=== PATIENT | male | born 1995 | race Caucasian/White ===

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

== ENCOUNTER 2018-03-23 22:10 | Emergency (ER) | payer BC ==
[2018-03-23] MEDS ORDERED: NS 2,000 ML IV ONE (22:14)
--- NOTE | 2018-03-23 22:17 | EDPHY ---
H & P Time Seen by Provider: 03/23/18 22:15 HPI/ROS: HPI CHIEF COMPLAINT: Syncope, edible. marijuana, alcohol HISTORY OF PRESENT ILLNESS: 22-year-old male, presents to the emergency room by EMS after he had 2 syncopal episodes. The patient ingested 50 mg of marijuana edible, additionally 4 shots of alcohol, additionally caffeine pill, presents emergency room after he had a syncopal episode. He states he felt excessively sleepy during the movie that was watching. He thinks he may have passed out or fell asleep during the movie. He then got up felt ringing in his ears and then had another syncopal episode as he stood up. Denies chest pain or shortness of breath. This all happened after he had 4 shots of liquor, over 50 mg of THC. Past Medical History: Denies medical history Past Surgical History: Denies surgical history Social History: Denies daily use of drugs alcohol tobacco. Family History: Noncontributory ROS REVIEW OF SYSTEMS: 10 Systems were reviewed and negative with the exception of the elements mentioned in the history of present illness. Exam Constitutional nontoxic. No acute distress triage nursing summary reviewed, vital signs reviewed, awake/alert. Eyes normal conjunctivae and sclera, EOMI, PERRLA. HENT normal inspection, atraumatic, moist mucus membranes, no epistaxis, neck supple/ no meningismus, no raccoon eyes. Respiratory clear to auscultation bilaterally, normal breath sounds, no respiratory distress, no wheezing. Cardiovascular rate normal, regular rhythm, no murmur, no edema, distal pulses normal. Gastrointestinal soft, non-tender, no rebound, no guarding, normal bowel sounds, no distension, no pulsatile mass. Genitourinary no CVA tenderness. Musculoskeletal no midline vertebral tenderness, full range of motion, no calf swelling, no tenderness of extremities, no meningismus, good pulses, neurovascularly intact. Skin pink, warm, & dry, no rash, skin atraumatic. Neurologic awake, alert and oriented x 3, AAOx3, moves all 4 extremities equally, motor intact, sensory intact, CN II-XII intact, normal cerebellar, normal vision, normal speech. Psychiatric normal mood/affect. Heme/Lymph/Immune no lymphadenopathy. Differential Diagnosis: Includes but is not limited to in a particular order polysubstance abuse, marijuana intoxication, alcohol intoxication, electrolyte disturbance, dehydration, cardiac arrhythmia, vasovagal syncope, orthostatic syncope Medical Decision Making: Plan for this patient IV establishment with EKG and cardiac cath lab radiology technologist, IV fluid bolus, check drug screen, alcohol level. Electrolytes. Chest x-ray, re-evaluate. Re-evaluation: EKG interpretation by me on record in [facility] system. Impression time of EKG 2224, sinus tach rate of 101, early re-yoan pattern present. No acute ischemic change appreciated. EKG was performed due to syncope. Patient has no chest pain. 2344: Patient re-evaluated this time is ambulatory throughout the emergency room with any lightheadedness dizziness nausea vomiting. Patient feels well. Denies chest pain or shortness of breath. Does not feel like he is going to have a syncopal episode. Feels stable. Most likely had a syncopal episode this evening due to alcohol ingestion, edible marijuana, caffeine pills. Dehydration. Recommend the patient he stays well hydrated drink lots of fluids. The patient's EKG was nonischemic noted be sinus tach 101. Early Re-yoan pattern. No signs of cardiac arrhythmia. ED x-ray chest one view: Negative for acute cardiopulmonary disease. Patient ambulated well throughout the emergency room. Requesting discharge Return precautions discussed with the patient. Troponin noted be 0.00 D-dimer negative. Vital signs stable. Return precautions discussed Source: Patient, EMS - Medical/Surgical History Hx Asthma: No Hx Chronic Respiratory Disease: No Hx Diabetes: No Hx Cardiac Disease: No Hx Renal Disease: No Hx Cirrhosis: No Hx Alcoholism: No Hx HIV/AIDS: No Hx Splenectomy or Spleen Trauma: No Other PMH: Concussion, MCL tear L knee, wisdom teeth, tonisllectomy, marijuana use. - Social History Smoking Status: Current some day smoker Constitutional: Initial Vital Signs Temperature (C) 36.6 C 03/23/18 22:10 Heart Rate 73 03/23/18 22:10 Respiratory Rate 16 03/23/18 22:10 Blood Pressure 124/73 H 03/23/18 22:10 O2 Sat (%) 97 03/23/18 22:10 O2 Delivery Mode Room Air Allergies/Adverse Reactions: Penicillins Allergy (Severe, Verified 03/23/18 22:16) Hives Home Medications: Medication Instructions Recorded Adderall 10 MG (*) 03/23/18 Medical Decision Making - Diagnostics Imaging Results: Imaging Impressions Chest X-Ray 03/23/18 22:14 Impression: 1. No acute pulmonary disease. 2. Consider chest two views when the patient's medical condition permits. - Data Points Laboratory Results: Laboratory Results 03/23/18 22:18 03/23/18 22:18 03/23/18 03/23/18 03/23/18 22:30 22:18 22:18 WBC RBC Hgb Hct MCV MCH MCHC RDW Plt Count MPV Neut % (Auto) Lymph % (Auto) [place] % (Auto) Eos % (Auto) Baso % (Auto) Nucleat RBC Rel Count Absolute Neuts (auto) Absolute Lymphs (auto) Absolute Monos (auto) Absolute Eos (auto) Absolute Basos (auto) Absolute Nucleated RBC Immature Gran % Immature Gran # D-Dimer < 0.27 ug/mLFEU ug/mLFEU (0.00-0.50) Sodium 140 mEq/L mEq/L (135-145) Potassium 4.6 mEq/L mEq/L (3.3-5.0) Chloride 99 mEq/L mEq/L (97-110) Carbon Dioxide 28 mEq/l mEq/l (22-31) Anion Gap 13 mEq/L mEq/L (8-16) BUN 19 mg/dL mg/dL (7-23) Creatinine 1.1 mg/dL mg/dL (0.7-1.3) Estimated GFR > 60 Glucose 99 mg/dL mg/dL (70-100) Calcium 10.4 mg/dL mg/dL (8.5-10.4) Magnesium 2.2 mg/dL mg/dL (1.6-2.3) Total Bilirubin 0.9 mg/dL mg/dL (0.1-1.4) Conjugated Bilirubin 0.2 mg/dL mg/dL (0.0-0.5) Unconjugated Bilirubin 0.7 mg/dL mg/dL (0.0-1.1) AST 33 IU/L IU/L (17-59) ALT 34 IU/L IU/L (21-72) Alkaline Phosphatase 105 IU/L IU/L (38-126) POC Troponin I 0.00 ng/mL ng/mL (0.00-0.08) Total Protein 8.7 g/dL H g/dL (6.3-8.2) Albumin 5.1 g/dL H g/dL (3.5-5.0) Ethyl Alcohol < 10 mg/dL mg/dL (0-10) 03/23/18 22:18 WBC 12.57 10^3/uL H 10^3/uL (3.80-9.50) RBC 5.76 10^6/uL 10^6/uL (4.40-6.38) Hgb 17.8 g/dL H g/dL (13.7-17.5) Hct 51.7 % H % (40.0-51.0) MCV 89.8 fL fL (81.5-99.8) MCH 30.9 pg pg (27.9-34.1) MCHC 34.4 g/dL g/dL (32.4-36.7) RDW 11.7 % % (11.5-15.2) Plt Count 475 10^3/uL H 10^3/uL (150-400) MPV 9.4 fL fL (8.7-11.7) Neut % (Auto) 57.9 % % (39.3-74.2) Lymph % (Auto) 32.3 % % (15.0-45.0) [place] % (Auto) 7.4 % % (4.5-13.0) Eos % (Auto) 1.6 % % (0.6-7.6) Baso % (Auto) 0.5 % % (0.3-1.7) Nucleat RBC Rel Count 0.0 % % (0.0-0.2) Absolute Neuts (auto) 7.28 10^3/uL H 10^3/uL (1.70-6.50) Absolute Lymphs (auto) 4.06 10^3/uL H 10^3/uL (1.00-3.00) Absolute Monos (auto) 0.93 10^3/uL H 10^3/uL (0.30-0.80) Absolute Eos (auto) 0.20 10^3/uL 10^3/uL (0.03-0.40) Absolute Basos (auto) 0.06 10^3/uL 10^3/uL (0.02-0.10) Absolute Nucleated RBC 0.00 10^3/uL 10^3/uL (0-0.01) Immature Gran % 0.3 % % (0.0-1.1) Immature Gran # 0.04 10^3/uL 10^3/uL (0.00-0.10) D-Dimer Sodium Potassium Chloride Carbon Dioxide Anion Gap BUN Creatinine Estimated GFR Glucose Calcium Magnesium Total Bilirubin Conjugated Bilirubin Unconjugated Bilirubin AST ALT Alkaline Phosphatase POC Troponin I Total Protein Albumin Ethyl Alcohol Medications Given: Discontinued Medications Sodium Chloride (Ns) 2,000 mls @ 0 mls/hr IV EDNOW ONE; Wide Open PRN Reason: Protocol Stop: 03/23/18 22:15 Last Admin: 03/23/18 22:25 Dose: 2,000 mls Point of Care Test Results: Chemistry 03/23/18 22:30 POC Troponin I 0.00 ng/mL ng/mL (0.00-0.08) Departure - Departure Disposition: Home, Routine, Self-Care Clinical Impression: Syncope Qualifiers: Syncope type: unspecified Qualified Code(s): R55 - Syncope and collapse Condition: Good Instructions: Syncope (ED) Additional Instructions: 1. Drink lots of fluids stay well-hydrated 2. Return emergency room if there is worsening symptoms questions or concerns. Referrals: NONE *PRIMARY CARE P,. [Primary Care Provider] - As per Instructions
[2018-03-23 22:24] LABS: PLATELET COUNT 475 10^3/uL (150-400)
[2018-03-23 23:52] VITALS: BP 126/79
--- NOTE | 2018-03-31 08:20 | CPEKG ---
Test Reason : OPEN Blood Pressure : / mmHG Vent. Rate : 101 BPM Atrial Rate : 101 BPM P-R Int : 128 ms QRS Dur : 097 ms QT Int : 338 ms P-R-T Axes : 084 091 058 degrees QTc Int : 439 ms Sinus tachycardia Borderline right axis deviation Borderline Q waves in inferior leads ST elev, probable normal early repol pattern Confirmed by Devon Tim ([id number]) on 03/31/2018 8:19:41 AM Referred By: Confirmed By:Devon Tim
== END 2018-03-23 23:51 | disposition home or self-care (01) ==
LOC: EDUNIT#
DX: R55 Syncope and collapse (principal); E86.9 Volume depletion, unspecified; F12.90 Cannabis use, unspecified, uncomplicated; F10.99 Alcohol use, unspecified with unspecified alcohol-induced disorder; F17.200 Nicotine dependence, unspecified, uncomplicated
CPT/HCPCS: 84484-PO; G0480